=== PATIENT | female | born 1975 | race Caucasian/White ===

== ENCOUNTER 2018-12-22 13:22 | Outpatient (CLI) | payer OTHER ==
--- NOTE | 2018-12-23 08:52 | Mammography Report ---
Reason: SCREENING MAMMO Procedure Date: 12/22/2018 Accession Number: [id number] / [id number] Procedure: [facility] - Screening Mammo w/Franco CPT Code: FULL RESULT: EXAM: Screening Mammo w/Franco DATE: 12/22/2018 2:00 PM CLINICAL HISTORY: Baseline screening. No reported personal or family history of breast cancer. TECHNIQUE: (B) - Bilateral CC and MLO views were obtained. COMPARISON: None PARENCHYMAL PATTERN: (A) - The breasts demonstrate scattered fibroglandular densities bilaterally. FINDINGS: Bilateral breasts: There are no suspicious masses, calcifications, or areas of distortion. IMPRESSION: Negative examination. BI-RADS category 1. RECOMMENDATION: (ANNUAL) - Recommend routine annual screening mammography. BI-RADS CATEGORY: (1) - Negative. STANDARD QUALIFYING STATEMENTS: 1. This examination was not reviewed with the aid of Computer-Aided Detection (CAD). 2. A negative or benign imaging report should not preclude biopsy if clinically suspicious findings are present. 3. Dense breasts may obscure an underlying neoplasm. 4. This examination was reviewed with the aid of 3D breast imaging (tomosynthesis).
== END 2018-12-22 13:23 | disposition home or self-care (01) ==
LOC: DI 13:22
PROVIDERS: ATTEND Family Medicine
DX: Z12.31 Encounter for screening mammogram for malignant neoplasm of breast (principal)
CPT/HCPCS: 77063; 77067

== ENCOUNTER 2020-07-14 10:13 | Outpatient (CLI) | payer OTHER ==
--- NOTE | 2020-07-14 11:43 | XRAY Report ---
PROCEDURE: Shoulder 3 View RT INDICATIONS: RT ROTATOR CUFF STRAIN TECHNIQUE: 3 views of the shoulder were acquired. COMPARISON: None. FINDINGS: Bones: No fractures or dislocations. No suspicious bony lesions. Visualized ribs appear intact. M ild periarticular osteophyte formation at the acromioclavicular joint. Soft tissues: No suspicious soft tissue calcifications. IMPRESSION: Osteoarthritis. No acute fracture. No osseous lesion. If symptoms and/or clinical suspic ion for pathology continue, further assessment with repeat plain films, or advanced imaging (e.g., CT , MRI, or bone scan) is recommended for further assessment. Reviewed by: Brodie Matthews MD on 07/14/2020 11:42 AM PST Approved by: Brodie Matthews MD on 07/14/2020 11:42 AM PST Station ID: [id number]
== END 2020-07-14 10:14 | disposition home or self-care (01) ==
LOC: DI.N 10:13
PROVIDERS: ATTEND Family Medicine
DX: S46.011A Strain of muscle(s) and tendon(s) of the rotator cuff of right shoulder, initial encounter (principal); M19.011 Primary osteoarthritis, right shoulder

== ENCOUNTER 2023-04-22 15:57 | Outpatient (CLI) | payer OTHER ==
--- NOTE | 2023-04-24 14:04 | Ultrasound Report ---
PROCEDURE: Head or Neck Soft Tissue INDICATIONS: NECK MASS TECHNIQUE: Real-time scanning was performed of the thyroid gland, with image documentation. COMPARISON: None FINDINGS: There are multiple lymph nodes bilaterally. In the septum and a area at midline, there is a 0.6 x 1.3 x 1.1 cm lymph node. A 1.3 x 0.6 mm lymph node seen in the right neck. There is a 1.3 x 0.6 mm lymph node in the left neck . IMPRESSION: Multiple borderline sized lymph nodes are present in the neck as described. The finding is nonspecific. Recommend clinical follow-up, and imaging follow-up as clinically indicated. Reviewed by: Jeanette Lovell MD on 04/24/2023 2:02 PM PST Approved by: Jeanette Lovell MD on 04/24/2023 2:02 PM PST Station ID: [id number]
== END 2023-04-22 15:58 | disposition home or self-care (01) ==
LOC: DI 15:57
PROVIDERS: ATTEND Student in an Organized Health Care Education/Training Program
DX: R22.1 Localized swelling, mass and lump, neck (principal)

== ENCOUNTER 2023-11-04 15:52 | Emergency (ER) | payer OTHER ==
[2023-11-04 16:05] VITALS: BP 180/90; O2SAT 99
--- NOTE | 2023-11-04 16:08 | ED Physician Documentation ---
History of Present Illness - Stated complaint Stated Complaint: LUMP ON THIGH - Chief complaint Chief Complaint: General - History obtained from History obtained from: Patient - Additonal information Additional information: She has had a mildly painful lump in the medial left thigh for about a week. No injury. PD PAST MEDICAL HISTORY - Past Medical History Past Medical History: No Cardiovascular: None Respiratory: None Neuro: None Endocrine/Autoimmune: None GI: None PAPER COUNTER: None : None HEENT: None Psych: None Musculoskeletal: None Derm: None - Past Surgical History Past Surgical History: Yes General: Cholecystectomy /PAPER COUNTER: Hysterectomy - Allergies Allergies/Adverse Reactions: Allergies Allergy/AdvReac Type Severity Reaction Status Date / Time No Known Drug Allergies Allergy Verified 11/04/23 15:58 - Social History Does the pt smoke?: No Smoking Status: Never smoker Does the pt drink ETOH?: No Does the pt have substance abuse?: No - Immunizations Immunizations are current?: Yes - POLST Patient has POLST: No PD ED PE NORMAL - Vitals Vital signs reviewed: Yes - General General: Alert and oriented X 3, No acute distress - Extremities Extremities: Other (There is a palpable small maybe marble sized lump in the medial distal left thigh. On ultrasound it corresponds with likely a lipoma. No fluid collection.) - Neuro Neuro: Alert and oriented X 3, Normal speech Results - Vitals Vitals: Vital Signs - 24 hr 11/04/23 15:56 Temperature 36.8 C Heart Rate 76 Respiratory 16 Rate Blood Pressure 180/90 H O2 Saturation 99 Oxygen O2 Source Room air PD Medical Decision Making - ED course ED course: Looks like she has a lipoma in her thigh. Where the lump is there is no deep v enous structure so and really not concerned about DVT. She was referred back to her PCP for general surgery or dermatology consultation. No EMC present. Departure - Departure Disposition: Home, Self Care Clinical Impression: Lipoma Qualifiers: Lipoma location: lower extremity Laterality: left Qualified Code(s): D17.24 - Benign lipomatous neoplasm of skin and subcutaneous tissue of left leg Condition: Good Record reviewed to determine appropriate education?: Yes Instructions: ED Lipoma Comments: The lump you have corresponds to what looks like probably a lipoma which is a benign fatty tumor on ultrasound. Follow-up with your primary care feet PA for consideration for referral to general surgery or dermatology. Return for new or worsening symptoms. Forms: PCP List Discharge Date/Time: 11/04/23 16:13
== END 2023-11-04 16:13 | disposition home or self-care (01) ==
LOC: ED 15:52
DX: D17.24 Benign lipomatous neoplasm of skin and subcutaneous tissue of left leg (principal)
CPT/HCPCS: 99281; 99283

== ENCOUNTER 2023-11-29 11:32 | Outpatient (CLI) | payer OTHER ==
[2023-11-29 11:43] LABS: BASOPHILS % (AUTO) 0.5 %; EOSINOPHILS # (AUTO) 0.1 10^3/uL (0.0-0.7); EOSINOPHILS % (AUTO) 1.8 %; HCT - HEMATOCRIT 44.4 % (37.0-47.0); HGB - HEMOGLOBIN 14.3 g/dL (12.0-16.0); LYMPHOCYTES # (AUTO) 2.6 10^3/uL (1.5-3.5); LYMPHOCYTES % (AUTO) 36.3 %; MEAN CORPUSCULAR HEMOGLOBIN 28.4 pg (27.0-31.0); MEAN CORPUSCULAR HGB CONC 32.2 g/dL (32.0-36.0); MEAN CORPUSCULAR VOLUME 88.3 fL (81.0-99.0); MEAN PLATELET VOLUME 11.4 fL (7.9-10.8); MONOCYTES # (AUTO) 0.5 10^3/uL (0.0-1.0); MONOCYTES % (AUTO) 6.6 %; NEUTROPHILS % (AUTO) 54.7 %; PLT - PLATELET COUNT 202 10^3/uL (130-450); RED BLOOD COUNT 5.03 10^6/uL (4.20-5.40); RED CELL DISTRIBUTION WIDTH 13.1 % (12.0-15.0); WHITE BLOOD COUNT 7.3 x10^3/uL (4.8-10.8)
[2023-11-29 12:02] LABS: ALBUMIN 5.1 g/dL (3.2-5.5); ALBUMIN/GLOBULIN RATIO 1.6 (1.0-2.2); ALKALINE PHOSPHATASE 66 IU/L (42-121); ALT ALANINE AMINOTRANSFERASE 15 IU/L (10-60); AST ASPARTATE AMINOTRANSFERASE 18 IU/L (10-42); BILIRUBIN,TOTAL 1.1 mg/dL (0.2-1.0); BUN - BLOOD UREA NITROGEN 12 mg/dL (6-20); CALCIUM 10.3 mg/dL (8.5-10.3); CARBON DIOXIDE - CO2 29 mmol/L (21-32); CHLORIDE 104 mmol/L (101-111); CHOLESTEROL 195 mg/dL; CREATININE 0.9 mg/dL (0.6-1.3); GFR - MDRD 67 (>89); GLUCOSE 126 mg/dL (74-104); HDL CHOLESTEROL 65 mg/dL; LDL CHOLESTEROL,CALCULATED 87 mg/dL; LDL/HDL RATIO 1.3 (<4.4); POTASSIUM 4.2 mmol/L (3.5-4.5); SODIUM 141 mmol/L (135-145); TOTAL PROTEIN 8.2 g/dL (6.4-8.9); TRIGLYCERIDES 217 mg/dL; VLDL CHOLESTEROL 43 mg/dL
[2023-11-29 12:18] LABS: THYROID STIMULATING HORMONE 2.28 uIU/mL (0.34-5.60)
--- NOTE | 2023-11-30 19:51 | XRAY Report ---
PROCEDURE: Cervical Spine 4-5V INDICATIONS: NECK PAIN TECHNIQUE: 7 views of the cervical spine were acquired. COMPARISON: None. FINDINGS: Bones: Vertebral body height and alignment is maintained. Normal bone mineralization and cranioverte bral relationships. No fracture or traumatic malalignment. Flexion and extension imaging shows no evidence of instability. Oblique images demonstrate osseous patency of the neural foramina without stenosis. Soft tissues: Prevertebral soft tissues are normal in thickness. IMPRESSION: Unremarkable cervical spine radiographs without evidence of instability Reviewed by: Arturo Styles MD on 11/30/2023 6:49 PM STEPHEN Approved by: Arturo Styles MD on 11/30/2023 6:49 PM STEPHEN Station ID: [id number]
== END 2023-11-29 11:33 | disposition home or self-care (01) ==
LOC: LAB 11:32
PROVIDERS: ATTEND Physician Assistant
DX: Z00.00 Encounter for general adult medical examination without abnormal findings (principal); I10 Essential (primary) hypertension; Z13.220 Encounter for screening for lipoid disorders; N95.9 Unspecified menopausal and perimenopausal disorder; M54.2 Cervicalgia
CPT/HCPCS: 36415; 80053; 80061; 83001; 83721; 84443; 85025

== ENCOUNTER 2023-12-04 07:19 | Outpatient (CLI) | payer OTHER ==
[2023-12-04 08:56] LABS: ESTIMATED AVERAGE GLUCOSE 114 mg/dL (70-100); HEMOGLOBIN A1c% 5.6 % (4.27-6.07)
== END 2023-12-04 07:20 | disposition home or self-care (01) ==
LOC: LAB 07:19
PROVIDERS: ATTEND Physician Assistant
DX: R73.01 Impaired fasting glucose (principal)
CPT/HCPCS: 36415; 83036

== ENCOUNTER 2023-12-11 20:54 | Outpatient (CLI) | payer OTHER ==
--- NOTE | 2023-12-12 14:19 | Ultrasound Report ---
PROCEDURE: Extremity Soft Tissue Limited INDICATIONS: BILATERAL THIGH MASS TECHNIQUE: Real-time scanning was performed of the bilateral upper anterior upper thigh, at patient' s area of concern, with image documentation. COMPARISON: None. FINDINGS/IMPRESSION: No discrete mass or fluid collection at the right upper anterior thigh, at patie nt's area of concern. In the left upper anterior thigh, there is a 1.7 x 0.7 x 1.0 cm hyperechoic, in completely circumscribed lesion with minimal internal vascularity in the subcutaneous fat, likely rep resenting a normal fat lobule. Reviewed by: Clari Mead MD on 12/12/2023 2:18 PM PDT Approved by: Clari Mead MD on 12/12/2023 2:18 PM PDT Station ID: [id number]
== END 2023-12-11 20:55 | disposition home or self-care (01) ==
LOC: DI 20:54
PROVIDERS: ATTEND Surgery
DX: R22.42 Localized swelling, mass and lump, left lower limb (principal)